=== PATIENT | female | born 1975 ===

== ENCOUNTER 2019-12-12 08:23 | Outpatient (CLI) | payer OTHER, SELFPAY ==
--- NOTE | ~2019-12-12 | CT_ITS ---
EXAMINATION: CT chest wo con EXAM DATE: 12/12/2019 09:08 INDICATION: Idiopathic pulmonary arterial hypertension. CHF. Chronic respiratory failure. TECHNIQUE: Spiral CT of the chest without contrast. Axial, coronal and sagittal images were reviewe d. Coronal maximum intensity pixel images of chest reviewed. The dose-length product (DLP) for this examination was 768.02 mGy-cm. The exposure was tailored according to patient size (auto mA exposur e control), and iterative reconstruction (ASIR) was used as additional dose reduction technique. The re is no prior study for comparison. FINDINGS: Dilated pulmonary arteries consistent with pulmonary arterial hypertension. There is cardio megaly and pulmonary vascular congestion. Minimal coronary artery calcification and trace pericardial effusion. Small bilateral pleural effusions. There is mediastinal, right hilar lymphadenopathy, with one of the larger prevascular lymph node fransisca uring 2.5 x 1.9 cm. There are scattered groundglass opacities and basilar intralobular septal thicken ing, differential diagnosis including. Could be edema and/or superimposed chronic process, such as hy persensitivity pneumonitis or nonspecific interstitial pneumonitis (NSIP) pattern interstitial lung d isease which can be caused by collagen vascular disease, medications/drugs, or can be idiopathic. Mor e confluent small scattered regions of basilar atelectasis. Please note that both NSIP and sarcoidosi s can cause these interstitial, lung changes and lymphadenopathy. Lymphoma, lymphangitic carcinomatos is not excludable. No axillary or supraclavicular lymphadenopathy. Also note made of splenomegaly, with the spleen incompletely imaged but the imaged portion measuring about 18 x 7 cm in axial dimensions. IMPRESSION: 1. Cardiomegaly, pulmonary arterial hypertension, pulmonary vascular congestion and small pleural ef fusions. 2. Scattered ground glass opacities with interlobular septal thickening, possible mild pulmonary amarilis ma. 3. Splenomegaly, mediastinal and right hilar lymphadenopathy, interlobular septal thickening. Consid er sarcoidosis, NSIP. Lymphoma not excludable. There any prior studies for comparison? Reviewed, dictated and finalized at location A. IMPRESSION: 1. Cardiomegaly, pulmonary arterial hypertension, pulmonary vascular congestio n and small pleural effusions. 2. Scattered ground glass opacities with interlobular septal thickening, possi ble mild pulmonary edema. 3. Splenomegaly, mediastinal and right hilar lymphadenopathy, interlobular sep vijaya thickening. Consider sarcoidosis, NSIP. Lymphoma not excludable. There any prior studies for comparison?
== END 2019-12-12 08:24 | disposition home or self-care (01) ==
DX: I27.0 Primary pulmonary hypertension (principal); I50.9 Heart failure, unspecified; J96.11 Chronic respiratory failure with hypoxia; I51.7 Cardiomegaly; J90 Pleural effusion, not elsewhere classified; R16.1 Splenomegaly, not elsewhere classified; R59.0 Localized enlarged lymph nodes
CPT/HCPCS: 71250

== ENCOUNTER 2023-08-25 18:38 | Emergency (ER) | payer OTHER, SELFPAY ==
--- NOTE | ~2023-08-25 | XR_ITS ---
XR knee RT 3V Ordering provider: Pantera Mitchell MD History: . fall,pain . Comparison: None. FINDINGS: BONES: No definite acute fracture or dislocation. Lucency in the patella superiolaterally is noted wh ich may indicate bipartite patella. Fracture is less likely but cannot be excluded although no soft t issue swelling seen in the area. Clinical correlation advised. JOINT SPACES: Normal. SOFT TISSUES: Normal. 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 Fracture is less likely but cannot be excluded although no soft tissue swelling seen in the area. Clinical correlation advised. Reviewed, dictated and finalized at location A. 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 Fracture is les s likely but cannot be excluded although no soft tissue swelling seen in the ar ea. Clinical correlation advised.
--- NOTE | ~2023-08-25 | CT_ITS ---
Procedure: CT knee RT wo con Ordering provider: Pantera Mitchell MD History: . R/o fracture . Comparison: None. Technique: Thin slice axial CT of the No IV contrast was given. Sagittal and coronal reformatted imag es were also obtained and reviewed. Radiation reduction technique utilized. DLP is 547.25 mGy. Findings: BONES: No fracture or dislocation. JOINT SPACES: Normal. SOFT TISSUES: Soft tissue density seen medially which may be a hematoma. Clinical evaluation advised. Subcutaneous calcification is seen evaluation for connective tissue diseases advised like scleroderm a. IMPRESSION: No fracture or dislocation. Soft tissue swelling medially suggestive of hematoma. Subcutaneous calcification. Reviewed, dictated and finalized at location A.
[2023-08-25 19:15] VITALS: BP 122/59; PULSE 100; RESP 16; TEMP 36.7; O2SAT 93
[2023-08-25] MEDS: ACETAMINOPHEN 500 MG TABLET 1000 MG PO (19:56)
--- NOTE | 2023-08-25 20:04 | ED.GENADULT ---
HPI - General Adult General Chief complaint: Extremity Injury, Lower Stated complaint: R LEG INJURY Time Seen by Provider: 08/25/23 19:40 History of Present Illness HPI narrative: this is a 47-year-old female presenting with right knee pain. She was trying to get out of a pool when her leg slipped through the latter. She struck the inside of her knee on the step. She now has a large bruise and swelling to the inside of her knee. She has been able to walk and bear weight. No other injuries. She is not on blood thinners. Related Data Home Medications Medication Instructions Recorded Confirmed tadalafil 20 mg tablet (Cialis) 20 mg PO DAILY PRN 07/19/21 12/06/21 Allergies Allergy/AdvReac Type Severity Reaction Status Date / Time codeine Allergy Unknown Unknown Verified 12/06/21 10:37 etodolac Allergy Unknown unknown Verified 12/06/21 10:37 iodine Allergy Unknown unknown Verified 12/06/21 10:37 Penicillins Allergy Unknown unknown Verified 12/06/21 10:37 povidone-iodine Allergy Unknown unknown Verified 12/06/21 10:37 sumatriptan Allergy Unknown unknown Verified 12/06/21 10:37 DETERGENT SOAP - TIDE WITH Allergy Severe Hives / Uncoded 12/06/21 10:37 FEBREEZE Red Face,RASH IVP DYE Allergy Mild unknown Uncoded 12/06/21 10:37 SLEEP MD OTC Allergy Mild unknown Uncoded 12/06/21 10:37 PMFSH Past Medical History Medical History Left ankle sprain Sinus tarsi syndrome of left ankle Venous reflux Surgical History Surgical History History of heart surgery heart catherization Family History Family History Sibling Family history of malignant neoplasm of thyroid Mother Family history of lupus erythematosus Other Diabetes mellitus Family history of arthritis Hypertension Social History Social History Smoking status: Former smoker Smoking end date: 03/12/02 Alcohol intake: current Exam Narrative: APPEARANCE: No apparent distress. Head: atraumatic. EYES: EOMI, NOSE: Atraumatic NECK: Trachea midline RESPIRATORY: No increased rate of breathing CARDIOVASCULAR: RRR, mild induration and swelling of the patient's ankles and calves which is chronic ABDOMINAL: Non-distended MUSCULOSKELETAl: Large hematoma over the inside of the right knee. Patient is able to ambulate. Pulses intact. NEURO: Alert. Moving 4/4 extremities SKIN:: Warm, dry. Normal color PSYCHIATRIC: Normal affect Course Vital Signs Vital signs: Vital Signs Temperature 98.1 F 08/25/23 19:15 Pulse Rate 100 08/25/23 19:15 Respiratory Rate 16 08/25/23 19:15 Blood Pressure 122/59 L 08/25/23 19:15 Pulse Oximetry 93 08/25/23 19:15 Oxygen Delivery Room Air 08/25/23 19:15 Temperature 98.1 F 08/25/23 19:15 Pulse Rate 100 08/25/23 19:15 Respiratory Rate 16 08/25/23 19:15 Blood Pressure 122/59 L 08/25/23 19:15 Pulse Oximetry 93 08/25/23 19:15 Oxygen Delivery Room Air 08/25/23 19:15 Medical Decision Making [facility] Narrative Medical decision making narrative: -Course: 47-year-old female presenting with knee injury. X-ray indeterminate for fracture. Clinically the patient does not have a fractured patella. She does have a large hematoma on the medial aspect of the knee. She is able to ambulate without difficulty. CT was ordered to further evaluate however patient did not want to stay for results. no displaced fractures on my evaluation CT. Hematoma noted. Official CT read will occur in the AM. Patient is discharged w/ pain medication and primary care follow-up. 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 Fracture is less lik
== END 2023-08-25 22:27 | disposition home or self-care (01) ==
PROVIDERS: Emergency Provider Emergency Medicine
DX: S80.01XA Contusion of right knee, initial encounter (principal); Z87.891 Personal history of nicotine dependence; W10.8XXA Fall (on) (from) other stairs and steps, initial encounter; Y93.11 Activity, swimming
CPT/HCPCS: 73562; 73700; 99284; A9270

== ENCOUNTER 2023-09-12 18:23 | Emergency (ER) | payer OTHER, SELFPAY ==
--- NOTE | ~2023-09-12 | US_ITS ---
RIGHT LOWER EXTREMITY VENOUS ULTRASOUND Ordering provider: Rosmery Rodriguez APRN History: . dvt r/o . Comparison: None. FINDINGS: --COMMON FEMORAL: Patent and free of thrombus. Normal compressibility, phasic flow and augmentation. --PROXIMAL SUPERFICIAL FEMORAL: Patent and free of thrombus. Normal compressibility, phasic flow and augmentation. --DISTAL SUPERFICIAL FEMORAL: Patent and free of thrombus. Normal compressibility, phasic flow and au gmentation. --POPLITEAL: Patent and free of thrombus. Normal compressibility, phasic flow and augmentation. --POSTERIOR TIBIAL: Patent and free of thrombus. Normal compressibility, phasic flow and augmentation . Hematoma seen in the medial aspect of the knee. IMPRESSION: Negative right lower extremity venous US. No deep vein thrombosis. Reviewed, dictated and finalized at location A.
--- NOTE | ~2023-09-12 | CT_ITS ---
Procedure: CT knee RT wo con Ordering provider: Govind Huerta DO History: . swelling . Comparison: August 25, 2023 Technique: Thin slice axial CT of the No IV contrast was given. Sagittal and coronal reformatted imag es were also obtained and reviewed. Radiation reduction technique utilized The dose-length product was 488.1 mGy-cm. Findings: BONES: No fracture or dislocation seen. No Bone abnormality seen. JOINT SPACES: Normal. SOFT TISSUES: The swelling seen medially is slightly decreased in size or unchanged compared to the p revious study. Calcification the subcutaneous tissue is again demonstrated. IMPRESSION: Slightly decreased size of the swelling seen medially are unchanged. Other appearances are unchanged. Reviewed, dictated and finalized at location A.
[2023-09-12 18:26] VITALS: BP 140/66; RESP 24; TEMP 36.3
--- NOTE | 2023-09-12 18:48 | ED.GENADULT ---
HPI - General Adult General Chief complaint: Extremity Problem,Nontraumatic Stated complaint: concern for DVT Time Seen by Provider: 09/12/23 18:48 Focused HPI: Minna Brown is a 47 y/o female who presents with reports of falling and injuring her right knee about 2 weeks and 3 days ago. She came here had xr and ct and it was negative for fracture, she continued to have a large amount of swelling to her medial knee area that has slowly decreased in size she saw her PCP who was concerned about the size still. She just got off of antibiotics clindamycin finished 2 days ago s/p lipo to her face. She states she noticed that the area on her right leg started to get warm 2 days ago and still has a lot of discomofort to her leg and she called her PCP and her PCP wanted her to be checked for DVT and cellulitis GENERAL: Well-appearing, well-nourished, and in no acute distress. HEAD: Normocephalic, atraumatic. CHEST: Clear to auscultation. ?No respiratory distress. HEART: Regular rate and rhythm.? NEURO: ?Alert and oriented x3. Patient screened in triage and initial orders placed.? ?Additional care and disposition to be based upon?diagnostic testing and treatment. Related Data Home Medications Medication Instructions Recorded Confirmed tadalafil 20 mg tablet (Cialis) 20 mg PO DAILY PRN 07/19/21 12/06/21 Allergies Allergy/AdvReac Type Severity Reaction Status Date / Time codeine Allergy Unknown Unknown Verified 09/12/23 18:26 etodolac Allergy Unknown unknown Verified 09/12/23 18:26 iodine Allergy Unknown unknown Verified 09/12/23 18:26 Penicillins Allergy Unknown unknown Verified 09/12/23 18:26 povidone-iodine Allergy Unknown unknown Verified 09/12/23 18:26 sumatriptan Allergy Unknown unknown Verified 09/12/23 18:26 DETERGENT SOAP - TIDE WITH Allergy Severe Hives / Uncoded 09/12/23 18:26 FEBREEZE Red Face,RASH IVP DYE Allergy Mild unknown Uncoded 09/12/23 18:26 SLEEP MD OTC Allergy Mild unknown Uncoded 09/12/23 18:26 PMFSH Past Medical History Medical History Left ankle sprain Sinus tarsi syndrome of left ankle Venous reflux Surgical History Surgical History History of heart surgery heart catherization Family History Family History Sibling Family history of malignant neoplasm of thyroid Mother Family history of lupus erythematosus Other Diabetes mellitus Family history of arthritis Hypertension Social History Social History Smoking status: Former smoker Smoking end date: 03/12/02 Alcohol intake: current Course Vital Signs Vital signs: Vital Signs Temperature 36.3 C L 09/12/23 18:26 Respiratory Rate 24 H 09/12/23 18:26 Blood Pressure 140/66 09/12/23 18:26 Temperature 36.3 C L 09/12/23 18:26 Pulse Rate 81 09/12/23 23:58 Respiratory Rate 16 09/12/23 23:58 Blood Pressure 114/76 09/12/23 23:58 Pulse Oximetry 94 09/12/23 23:58 Oxygen Delivery Nasal Cannula 09/12/23 19:58 Oxygen Flow Rate 2 09/12/23 19:58 Medical Decision Making Vital Signs Vital Signs: Vital Signs Temperature 36.3 C L 09/12/23 18:26 Respiratory Rate 24 H 09/12/23 18:26 Blood Pressure 140/66 09/12/23 18:26 Temperature 36.3 C L 09/12/23 18:26 Pulse Rate 81 09/12/23 23:58 Respiratory Rate 16 09/12/23 23:58 Blood Pressure 114/76 09/12/23 23:58 Pulse Oximetry 94 09/12/23 23:58 Oxygen Delivery Nasal Cannula 09/12/23 19:58 Oxygen Flow Rate 2 09/12/23 19:58 Lab Data 09/12/23 20:09 09/12/23 20:09 Labs: Lab Results 09/12/23 Range/Units 20:09 WBC 1.5 L* (4.5-10.0) K/mm3 RBC 3.36 L (4.2-5.4) M/mm3 Hgb 10.2 L (12.0-15.0) g/dL Hct 33.8 L (37.0-47.0) % MCV 100.6 H (80-100) fl MCH 30.4 (
[2023-09-12 19:58] VITALS: O2SAT 94
--- NOTE | 2023-09-12 19:58 | PC.NURSE ---
patient reports having pulmonary hypertension and her oxygen saturations is always around 90%. Reports using a CPAP at night, but otherwise no supplemental oxygen. Placed on 2 LPM via nasal cannula.
[2023-09-12 20:16] LABS: Basophils Percent Auto 1.3 % (0.2-1.2); Eosinophils Absolute Auto 0.1 K/mm3 (0-0.3); Eosinophils Percent Auto 5.2 % (0-4.4); Hematocrit 33.8 % (37.0-47.0); Hemoglobin 10.2 g/dL (12.0-15.0); Lymphocytes Absolute Auto 0.29 K/mm3 (0.9-3.2); Mean Corpuscular HGB Conc 30.2 g/dl (32-36); Mean Corpuscular Hemoglobin 30.4 pg (26-34); Mean Corpuscular Volume 100.6 fl (80-100); Mean Platelet Volume 10.7 fl (7.4-10.4); Monocytes Absolute Auto 0.1 K/mm3 (0.1-0.6); Monocytes Percent Auto 9.2 % (2.6-8.5); Neutrophils Percent Auto 65.3 % (45.5-73.1); Platelet Count Result 94 k/mm3 (150-375); Red Blood Count 3.36 M/mm3 (4.2-5.4); Red Cell Distribution Width 17.3 % (11.5-14.5)
[2023-09-12 20:27] LABS: Prothrombin Time 14.1 Seconds (11.1-14.7)
[2023-09-12 20:28] LABS: Partial Thromboplastin Time 30.4 Seconds (22.3-36.8)
[2023-09-12 20:32] LABS: Anion Gap 10 mmol/L (4-12); Blood Urea Nitrogen 36 mg/dL (7-17); Calcium 9.2 mg/dL (8.4-10.2); Carbon Dioxide 32 mmol/L (22-30); Chloride 96 mmol/L (98-107); Estimated CRCL calculation 34 ml/min; Estimated Glomerular Filt Rate 27; Glucose 180 mg/dL (65-110); Potassium 3.2 mmol/L (3.4-5.0); Sodium 138 mmol/L (137-145)
[2023-09-12 20:49] LABS: White Blood Count 1.5 K/mm3 (4.5-10.0)
[2023-09-12 20:51] LABS: Anisocytosis 2+; Platelet Estimate Decreased (Adequate); Schistocytes None Seen
[2023-09-12 20:52] LABS: Hypochromasia 1+
[2023-09-12 21:17] LABS: D Dimer 1.12 ug/mL (<0.48)
--- NOTE | 2023-09-12 21:25 | ED.EXTPRO ---
HPI - Extremity Problem General Chief complaint: Extremity Problem,Nontraumatic Stated complaint: concern for DVT Time Seen by Provider: 09/12/23 18:48 Source: patient Limitations: no limitations History of Present Illness HPI Narrative: Patient is a 47-year-old female presents to the emergency department complaining of a possible DVT in her right medial leg. Patient states approximately 3 weeks ago she had a injury with a resultant hematoma and was educated by primary care physician in the signs of DVT and notes that she recently began feeling like it is more swollen warm to the touch. Patient admits to history of pulmonary hypertension baseline where some oxygen as needed and 9, denies any chest pain or difficulty breathing. Patient denies history of DVT. Patient denies fever, vomiting, numbness, weakness. Patient admits to a recent liposuction surgery on her neck region. Patient denies being on any immunosuppressants. Related Data Home Medications Medication Instructions Recorded Confirmed tadalafil 20 mg tablet (Cialis) 20 mg PO DAILY PRN 07/19/21 12/06/21 Allergies Allergy/AdvReac Type Severity Reaction Status Date / Time codeine Allergy Unknown Unknown Verified 09/12/23 18:26 etodolac Allergy Unknown unknown Verified 09/12/23 18:26 iodine Allergy Unknown unknown Verified 09/12/23 18:26 Penicillins Allergy Unknown unknown Verified 09/12/23 18:26 povidone-iodine Allergy Unknown unknown Verified 09/12/23 18:26 sumatriptan Allergy Unknown unknown Verified 09/12/23 18:26 DETERGENT SOAP - TIDE WITH Allergy Severe Hives / Uncoded 09/12/23 18:26 FEBREEZE Red Face,RASH IVP DYE Allergy Mild unknown Uncoded 09/12/23 18:26 SLEEP MD OTC Allergy Mild unknown Uncoded 09/12/23 18:26 Review of Systems Review of Systems: A 10 system review of systems was completed on the patient and is negative except for what is stated in the HPI. Nursing and ancillary documentation was reviewed. [facility] Past Medical History Medical History Left ankle sprain Sinus tarsi syndrome of left ankle Venous reflux Surgical History Surgical History History of heart surgery heart catherization Family History Family History Sibling Family history of malignant neoplasm of thyroid Mother Family history of lupus erythematosus Other Diabetes mellitus Family history of arthritis Hypertension Social History Social History Smoking status: Former smoker Smoking end date: 03/12/02 Alcohol intake: current Comments At time of signature, I have reviewed and agree with nursing past medical, surgical, social and family history unless otherwise noted. Please see the nursing chart for further information. There is no relevant family history pertinent to the presenting complaint. Exam Narrative: CONST: No acute distress. Well nourished. On two liters supplemental oxygen with nasal cannula. HENMT: Head is normocephalic and atraumatic. No posterior oropharynx erythema. EYES: No conjunctival icterus, injection, or pallor. NECK: No meningeal signs. RESP: Able to speak in full sentences. Normal respiratory effort. CARDIO: Regular rate. Regular rhythm. 2+ DP pulses bilaterally. GI: Nondistended. SKIN: No rashes or lesions noted on exposed skin. Small area of induration and warmth and mild tenderness to palpation of the right medial knee, scant fluid collection present, no crepitus. NEURO: Oriented x3. Moves all extremities. EXTREM/MSK/BACK: No significant lower extremity edema. PSYCH: Normal affect. Course Vital Signs Vital signs: Vital Signs Temperature 97.4 F L 09/12/23 18:26 Respiratory Rate 24 H 09/12/23 18:26 Blood Pressure 140/66 09/12/23 18:26 Temperature 97.4 F L 09/12/23 18:26 P
[2023-09-12] MEDS: POTASSIUM CHLORIDE 20 MEQ PACKET (FOR LIQUID) PO (21:40)
[2023-09-12 21:56] VITALS: BP 122/76; PULSE 88; RESP 15; O2SAT 94
[2023-09-12] MEDS: cefuroxime axetiL 250 MG TABLET 500 MG PO (23:31)
[2023-09-12 23:58] VITALS: BP 114/76; PULSE 81; RESP 16; O2SAT 94
== END 2023-09-13 00:05 | disposition home or self-care (01) ==
PROVIDERS: Nurse Practitioner Family; Emergency Provider Student in an Organized Health Care Education/Training Program
DX: L03.115 Cellulitis of right lower limb (principal); D72.819 Decreased white blood cell count, unspecified
CPT/HCPCS: 36415; 73700; 80048; 85025; 85055; 85380; 85610; 85730; 93971; 99284; A9270